=== PATIENT | female | born 1940 | race Caucasian/White ===

== ENCOUNTER 2016-09-05 18:26 | Emergency (ER) | payer OTHER ==
--- NOTE | ~2016-09-05 | CR286 ---
[facility] A Service of [facility] RADIOLOGY TEXT RESULTS PATIENT: MARIUSZ ALFORD LOCATION: [facility] : 41 UNIT #: [id number] AGE: [address]: Kuldip Arriaga MD SEX: F ORDER DR: [id number] [facility] [address] [place], [place] [address] [id number] E MR#: [id number] Acc #: [id number] NAME: MARIUSZ ALFORD : 1940 SEX: F STUDY DATE/TIME: 09/05/2016 18:41 UNIT: [facility] ROOM: STUDY DESCRIPTION: CR Wrist W Navicular Min 3 Rt Attending Physician: Kuldip Arriaga M.D. Ordering Physician: Kuldip Arriaga M.D. 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 Bone alignment is satisfactory. There may also be a subtle nondisplaced oblique fracture at the base of the radial styloid process. However, no definite fracture and no displaced fracture. Remainder of the wrist alignment is satisfactory. Soft tissue swelling over the dorsum of the wrist. IMPRESSION 1. Old healed fracture deformity distal radial metaphysis with associated degenerative changes in the distal radial ulnar joint. 2. There is also a questionable, possibly subtle nondisplaced oblique fracture, which could be acute at the base of the radial styloid process and correlation to the patient's symptoms in this location is recommended. No displaced fracture. 3. Soft tissue swelling about the wrist. Dictated by... Jean-Claude Ortiz M.D. THIS IS AN ELECTRONICALLY VERIFIED REPORT Jean-Claude Ortiz M.D. at 09/06/2016 8:50 PM DFL/to [facility] A Service [facility] RADIOLOGY TEXT RESULTS PATIENT: MARIUSZ ALFORD [facility] #: [id number] : 41 UNIT #: [id number] AGE: [address]: Kuldip Arriaga MD SEX: F ORDER DR: TD: 09/05/2016 21:46 JOB #: [id number] MEDICAL IMAGING REPORT Page 1 of 1 COPY
== END 2016-09-05 20:29 | disposition home or self-care (01) ==
LOC: CED 18:26
DX: S62.101A Fracture of unspecified carpal bone, right wrist, initial encounter for closed fracture (principal); I10 Essential (primary) hypertension; Z88.0 Allergy status to penicillin; Z88.2 Allergy status to sulfonamides; Z87.891 Personal history of nicotine dependence; W18.09XA Striking against other object with subsequent fall, initial encounter; Y92.098 Other place in other non-institutional residence as the place of occurrence of the external cause
CPT/HCPCS: 29125; 73110; 96372; 99283; J2270

== ENCOUNTER → 2016-09-24 | Outpatient (CLI) | payer OTHER ==
--- NOTE | ~2016-09-24 | BD1 ---
[facility] A Service of [facility] RADIOLOGY TEXT RESULTS PATIENT: MARIUSZ ALFORD LOCATION: [facility] : 41 UNIT #: [id number] AGE: [address]: SAQIB GUTIERREZ SEX: F ORDER DR: [id number] [facility] [address] [place], [place] [address] [id number] O MR#: [id number] Acc #: [id number] NAME: MARIUSZ ALFORD : 1940 SEX: F STUDY DATE/TIME: 09/24/2016 12:21 UNIT: [facility] ROOM: STUDY DESCRIPTION: BD Dexa Bone Dens 1+ Site Attending Physician: Saqib Gutierrez M.D. Referring Physician: Saqib Gutierrez M.D. Primary Care Physician: Saqib Gutierrez M.D. MEDICAL IMAGING REPORT This report is preliminary unless electronic signature is present EXAM DXA scan. DATE 09/24/2016 HISTORY 76-year-old postmenopausal female for osteoporosis screening. History of back surgery 1979. History of right and left wrist fractures. COMPARISON None FINDINGS L1 through L4 total bone mineral density is 1.019 g/cm2 with T-score -0.3 and Z-score 2.2, within normal limits. Left femoral neck bone mineral density is 0.670 g/cm2 with T-score -1.6 and Z-score 0.5, corresponding to range of osteopenia. IMPRESSION 1. Osteopenia within the left femoral neck. 2. Normal bone mineral density within the lumbar spine. Dictated by... Bre Etienne M.D. THIS IS AN ELECTRONICALLY VERIFIED REPORT Bre Etienne M.D. at 09/25/2016 7:09 AM [facility]/scar TD: 09/24/2016 22:56 [facility] A Service [facility] RADIOLOGY TEXT RESULTS PATIENT: MARIUSZ ALFORD LOCATION: [facility] : 41 UNIT #: [id number] AGE: [address]: SAQIB GUTIERREZ SEX: F ORDER DR: JOB #: [id number] MEDICAL IMAGING REPORT Page 1 of 1 COPY
== END | disposition home or self-care (01) ==
LOC: CWCC 11:49
DX: Z13.820 Encounter for screening for osteoporosis (principal); M85.88 Other specified disorders of bone density and structure, other site; N95.9 Unspecified menopausal and perimenopausal disorder; Z88.0 Allergy status to penicillin; Z88.2 Allergy status to sulfonamides; Z88.8 Allergy status to other drugs, medicaments and biological substances
CPT/HCPCS: 77080